=== PATIENT | male | born 1990 | race Caucasian/White ===

== ENCOUNTER 2024-08-03 20:47 | Emergency (ER) | payer SELFPAY ==
[~2024-08-03] VITALS: Ht 177.8 cm; Wt 110.0 kg
[2024-08-03 20:55] VITALS: TEMP 36.9; O2SAT 97
[2024-08-03] MEDS: SODIUM CHLORIDE 0.9% 1,000 ML IV ONE (21:37)
[2024-08-03 22:56] LABS: BASOPHILS % 0.1 % (0.0-2.0); EOSINOPHILS % 0.1 % (0.0-5.0); HEMATOCRIT. 41.7 % (42.0-52.0); HEMOGLOBIN. 13.9 g/dL (14.0-18.0); LYMPHOCYTES % 18.8 % (20.0-50.0); MEAN CORPUSCULAR HEMOGLOBIN 29.4 pg (28.0-32.0); MEAN CORPUSCULAR HGB CONC 33.3 g/dL (31.0-37.0); MEAN CORPUSCULAR VOLUME 88.2 fL (80.0-94.0); MEAN PLATELET VOLUME 7.8 fl (7.4-10.4); PLATELET 306 x1000/uL (130-400); RED BLOOD CELL COUNT 4.73 mill/uL (4.7-6.1); RED CELL DISTRIBUTION WIDTH 13.1 % (11.6-14.6); WHITE BLOOD COUNT 13.5 x1000/uL (4.5-11.0)
[2024-08-03 23:01] LABS: CHLORIDE 106 mEq/L (98-107); POTASSIUM 3.6 mEq/L (3.5-5.1); SODIUM 141 mEq/L (136-145)
[2024-08-03 23:02] LABS: CARBON DIOXIDE 22 mEq/L (21-32)
[2024-08-03 23:07] LABS: GLUCOSE 122 mg/dL (70-105); UREA NITROGEN BLOOD 10 mg/dL (9-23)
[2024-08-03 23:08] LABS: ETHANOL BLOOD 44 mg/dL (<10)
[2024-08-03 23:09] LABS: ACETAMINOPHEN < 2 ug/mL (10-30); ALANINE AMINOTRANSFERASE 41 IU/L (10-49); ALBUMIN 4.3 g/dL (3.2-4.8); ASPARTATE AMINOTRANSFERASE 35 IU/L (<34); BILIRUBIN TOTAL 0.2 mg/dL (0.1-1.0); PROTEIN TOTAL 7.2 g/dL (6.0-8.3)
[2024-08-03 23:10] LABS: TROPONIN I HIGH SENSITIVITY 45 ng/L (3.0-53)
[2024-08-03 23:11] LABS: BILIRUBIN DIRECT < 0.1 mg/dL (<=3.0)
[2024-08-04] MEDS: ONDANSETRON HCL 4MG/2ML INJ IV ONE (01:36)
[2024-08-04] MEDS ORDERED: TOPUD MT (02:36)
[2024-08-04] MEDS ORDERED: ONDA4TAB50 MT (02:36)
[2024-08-04] MEDS ORDERED: PANT40SU MT (02:36)
[2024-08-04 04:09] VITALS: BP 117/86; PULSE 82; RESP 18; O2SAT 99
== END 2024-08-04 04:07 | disposition home or self-care (01) ==
LOC: ER 20:47
DX: S00.11XA Contusion of right eyelid and periocular area, initial encounter (principal); I49.9 Cardiac arrhythmia, unspecified; V89.2XXA Person injured in unspecified motor-vehicle accident, traffic, initial encounter; Y93.89 Activity, other specified; Y92.89 Other specified places as the place of occurrence of the external cause; Y99.8 Other external cause status
CPT/HCPCS: 80076; 80048; 80307; 80329; 80320; 85025; 84484; 36415; 71045; 70450; 93005; 96361; 99291; 96374; J7030; J2405; 99285; G0480